=== PATIENT | female | born 1955 | race Caucasian/White ===

== ENCOUNTER → 2023-05-10 | Outpatient (CLI) | payer OTHER ==
[~2023-05-10] MED LIST: ALDACTONE50 MG PO; CLARITIN LIQUI-10 MG PO; LIPITOR 40MG TA40 MG PO; MOBIC15 MG PO; MULTIVITAMIN200 MCG PO; PRIL40 PO; PROPECIA1 MG PO; VITAMIN D31000 I1 PO
== END ==
LOC: MC.RAD 08:00
DX: N60.01 Solitary cyst of right breast (principal)